=== PATIENT | female | born 1945 | race Caucasian/White ===

== ENCOUNTER 2016-08-05 09:11 | Outpatient (CLI) | payer OTHER ==
--- NOTE | 2016-08-05 11:19 | DIAGNOSTIC IMAGING REPORT ---
PROCEDURE: CT THORAX WITHOUT CONTRAST INDICATION: LEFT LOWER LUNG; NEOPLASM TECHNIQUE: Noncontrast axial images were obtained of the chest with coronal and sagittal reformations. COMPARISON: CT chest 06/11/2011. FINDINGS: Moderate emphysema. New 13 x 6 7 mm of right upper lobe and small left upper lobe spiculated densities. New atelectasis of the right middle lobe, medial segment, without evidence of a central mass. 7 mm peripheral left upper lobe nodule (image 28), previously 2.5 mm. Stable 10 mm pretracheal lymph node. Mild atherosclerosis of the aorta. Coronary atherosclerosis. Sternotomy and CABG. Normal heart size. Bilateral breast implants with calcified capsules. Cholecystectomy. Left renal upper pole cyst. Moderate degenerative changes of the spine. IMPRESSION: 1. Moderate emphysema 2. New spiculated density in both upper lobes, scarring versus developing masses 3. 7 mm peripheral left upper lobe round nodule with slow progression since CT scan 06/11/2011. This suggests a benign nodule and neoplasm is less likely. 4. New atelectasis of the right middle lobe medial segment without central mass. Bronchoscopy may be useful for further evaluation. 5. CABG
== END 2016-08-05 23:00 ==
LOC: CT SRH 09:11
DX: D38.1 Neoplasm of uncertain behavior of trachea, bronchus and lung (principal); J43.9 Emphysema, unspecified; J98.11 Atelectasis; Z95.1 Presence of aortocoronary bypass graft

== ENCOUNTER 2016-11-27 12:56 | Outpatient (CLI) | payer OTHER ==
--- NOTE | 2016-11-27 13:45 | DIAGNOSTIC IMAGING REPORT ---
PROCEDURE: CT THORAX WITHOUT CONTRAST INDICATION: NEOPLASM OF LEFT LOWER LOBE OF LUNG TECHNIQUE: Noncontrast axial images were obtained of the chest with coronal and sagittal reformations. COMPARISON: CTA thorax 08/05/2016. FINDINGS: The thyroid gland is normal. Thoracic aorta is normal caliber with atherosclerotic calcification. The great vessels demonstrates normal branching pattern. The central pulmonary arteries are normal caliber. Heart size is normal. No pericardial effusion. No adenopathy or mediastinal masses. The esophagus is normal in caliber without hiatal hernia. The airway is patent and branches normally. The lungs are clear. No pleural effusions or pneumothorax. Osseous structures are intact. The images obtained of the upper abdomen are normal. IMPRESSION: 1.
== END 2016-11-27 23:00 | disposition home or self-care (01) ==
LOC: CT SRH 12:56
DX: D38.1 Neoplasm of uncertain behavior of trachea, bronchus and lung (principal); K76.9 Liver disease, unspecified; K83.8 Other specified diseases of biliary tract

== ENCOUNTER → 2016-12-01 | Outpatient (CLI) | payer OTHER ==
--- NOTE | 2016-12-01 10:35 | DIAGNOSTIC IMAGING REPORT ---
PROCEDURE: CT ABD/PELVIS WITH CONTRAST CLINICAL INDICATION: NEW LOW DENSITY HEPATIC LESIONS AND INTRADUCTAL DILATION TECHNIQUE: 125 ml of Isovue 300 were injected intravenously and axial images were obtained of the entire abdomen and pelvis with sagittal and coronal reformations. COMPARISON: CTA chest 11/27/[address] abdomen 01/15/2016. FINDINGS: ABDOMEN: Lung bases are clear. Surgical changes anterior to the right pericardium. Heart size is normal. Cholecystectomy. Stable dilation of the common bile duct (11 mm) and mild intrahepatic ductal dilation. There are multiple new hypoenhancing lesions throughout the liver measuring less than 1 cm, while some are somewhat larger and may arise from ducts with a saccular as well as fusiform configuration. Normal pancreas without pancreatic ductal dilation. Spleen and adrenal glands are normal. Stable bilateral renal cysts. There is stable mild wall edema involving the gastric antrum. Mild sigmoid diverticulosis. Severe atherosclerosis of the aorta. There is some fluid in the ascending colon as well as nondilated fluid filled loops of small bowel. Moderate stool. PELVIS: Moderate sigmoid diverticulosis.. Uterus, adnexa and bladder are unremarkable. No inflammatory changes or free fluid. L4 laminectomy with L4-5 vertebral body fusion and L3-L5 surgical changes. Stable grade 1 L4-5 anterolisthesis. IMPRESSION: 1. Multiple new hypoenhancing lesions throughout the liver with stable dilation of the extra and intrahepatic ducts. Consider Caroli disease, recurrent pyogenic cholangitis, multiple biliary hamartomas and metastases. Recommend abdominal ultrasound. 2. Cholecystectomy 3. Chronic mild edema of the gastric antrum suggestive of gastritis. Correlate clinically 4. Fluid in the ascending colon suggestive of enterocolitis. Correlate clinically 5. Diverticulosis All CT scans at this facility use dose modulation, iterative reconstruction, and/or weight-based dosing when appropriate to reduce radiation dose to as low as reasonably achievable.
== END ==
LOC: CT SRH 08:58
DX: K76.9 Liver disease, unspecified (principal); R93.5 Abnormal findings on diagnostic imaging of other abdominal regions, including retroperitoneum

== ENCOUNTER → 2016-12-03 | Outpatient (CLI) | payer OTHER ==
--- NOTE | 2016-12-03 09:37 | DIAGNOSTIC IMAGING REPORT ---
PROCEDURE: US ABDOMEN ULTRASOUND-LIMITED INDICATION: LIVER LESION TECHNIQUE: [place] scale and color Doppler sonographic images of the abdomen were obtained. COMPARISON: CT abdomen/pelvis 12/01/2016. FINDINGS: Liver measures 12.8 cm with too numerous to count small echogenic hepatic lesions, most measuring less than 1 cm but others more confluent. These correspond to the multiple nonenhancing liver lesion seen on CT scan. Cholecystectomy normal pancreas. Aorta and IVC are patent. Normal hepatopetal flow. Normal right kidney measures 10.9 cm. IMPRESSION: 1. Multiple too numerous to count echogenic hepatic lesions corresponding to the CT finding. 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 Correlate clinically and with LFTs. Microabscesses are less likely in the absence of symptoms.
== END ==
LOC: US SRH 07:22
DX: K76.9 Liver disease, unspecified (principal)